=== PATIENT | male | born 1950 | race Caucasian/White ===

== ENCOUNTER 2017-12-24 10:29 | Outpatient (CLI) | payer OTHER | END 2017-12-24 12:29 | disposition home or self-care (01) | LOC: ECT 10:29 | DX: F33.3 Major depressive disorder, recurrent, severe with psychotic symptoms (principal); Z85.828 Personal history of other malignant neoplasm of skin; E78.5 Hyperlipidemia, unspecified; R73.03 Prediabetes; F41.9 Anxiety disorder, unspecified; Z87.891 Personal history of nicotine dependence; M75.31 Calcific tendinitis of right shoulder ==

== ENCOUNTER 2017-12-26 08:40 | Outpatient (RCR) | payer OTHER ==
[~2017-12-26] VITALS: Ht 180.3 cm; Wt 76.7 kg
[2017-12-28] MEDS ORDERED: Methohexital Sodium Syr 100mg/10ml IVP ONE (06:00)
[2017-12-28] MEDS ORDERED: Midazolam 2mg/2ml Inj ONE (06:00)
[2017-12-28] MEDS ORDERED: Succinylcholine 20mg/ml 10ml vial ONE (06:00)
[2017-12-28] MEDS ORDERED: NS 500ML ONE (06:00)
[2017-12-31] MEDS ORDERED: Succinylcholine 20mg/ml 10ml vial ONE (06:00)
[2017-12-31] MEDS ORDERED: Methohexital Sodium Syr 100mg/10ml IVP ONE (06:00)
[2017-12-31] MEDS ORDERED: Midazolam 2mg/2ml Inj ONE (06:00)
[2017-12-31] MEDS ORDERED: NS 500ML ONE (06:00)
[2018-01-02] MEDS ORDERED: Methohexital Sodium Syr 100mg/10ml IVP ONE (14:26)
[2018-01-02] MEDS ORDERED: Succinylcholine 20mg/ml 10ml vial ONE (14:26)
[2018-01-02] MEDS ORDERED: Midazolam 2mg/2ml Inj ONE (14:26)
== END 2018-01-02 | disposition home or self-care (01) ==
LOC: ECT 08:40
DX: F33.3 Major depressive disorder, recurrent, severe with psychotic symptoms (principal)
CPT/HCPCS: 90870; J0330; J2250; J7040

== ENCOUNTER 2018-01-04 08:40 | Outpatient (RCR) | payer OTHER ==
[~2018-01-04] VITALS: Ht 180.3 cm; Wt 77.0 kg
[2018-01-04] MEDS ORDERED: Succinylcholine 20mg/ml 10ml vial ONE (08:41)
[2018-01-04] MEDS ORDERED: NS 500ML ONE (08:41)
[2018-01-04] MEDS ORDERED: Methohexital Sodium Syr 100mg/10ml IVP ONE (08:41)
[2018-01-07] MEDS ORDERED: Methohexital Sodium Syr 100mg/10ml IVP ONE (06:00)
[2018-01-07] MEDS ORDERED: Succinylcholine 20mg/ml 10ml vial ONE (06:00)
[2018-01-07] MEDS ORDERED: NS 500ML ONE (06:00)
[2018-01-09] MEDS ORDERED: Succinylcholine 20mg/ml 10ml vial ONE (06:00)
[2018-01-09] MEDS ORDERED: Methohexital Sodium Syr 100mg/10ml IVP ONE (06:00)
[2018-01-09] MEDS ORDERED: NS 500ML ONE (06:00)
[2018-01-11] MEDS ORDERED: Methohexital Sodium Syr 100mg/10ml IVP ONE (06:00)
[2018-01-11] MEDS ORDERED: Succinylcholine 20mg/ml 10ml vial ONE (06:00)
[2018-01-11] MEDS ORDERED: NS 500ML ONE (06:00)
[2018-01-14] MEDS ORDERED: Methohexital Sodium Syr 100mg/10ml IVP ONE (06:00)
[2018-01-14] MEDS ORDERED: Succinylcholine 20mg/ml 10ml vial ONE (06:00)
[2018-01-14] MEDS ORDERED: NS 500ML ONE (06:00)
[2018-01-16] MEDS ORDERED: Succinylcholine 20mg/ml 10ml vial ONE (06:00)
[2018-01-16] MEDS ORDERED: Methohexital Sodium Syr 100mg/10ml IVP ONE (06:00)
[2018-01-16] MEDS ORDERED: NS 500ML ONE (06:00)
[2018-01-18] MEDS ORDERED: NS 500ML ONE (06:00)
[2018-01-18] MEDS ORDERED: Methohexital Sodium Syr 100mg/10ml IVP ONE (06:00)
[2018-01-18] MEDS ORDERED: Succinylcholine 20mg/ml 10ml vial ONE (06:00)
[2018-01-23] MEDS ORDERED: Succinylcholine 20mg/ml 10ml vial ONE (06:00)
[2018-01-23] MEDS ORDERED: NS 500ML ONE (06:00)
[2018-01-23] MEDS ORDERED: Methohexital Sodium Syr 100mg/10ml IVP ONE (06:00)
[2018-01-23 09:18] VITALS: BP 130/69
[2018-01-23 09:30] VITALS: BP 125/54
[2018-01-23] MEDS ORDERED: Sodium Chloride 500ML 500 ML IV ONE (09:30)
[2018-01-23 09:35] VITALS: BP 139/59
[2018-01-23 09:40] VITALS: BP 139/59
[2018-01-23 09:45] VITALS: BP 128/52
== END 2018-02-02 | disposition home or self-care (01) ==
LOC: ECT 08:40
DX: F33.3 Major depressive disorder, recurrent, severe with psychotic symptoms (principal)
CPT/HCPCS: 90870; J0330; J2405; J7040

== ENCOUNTER 2018-02-04 09:11 | Outpatient (RCR) | payer OTHER ==
[~2018-02-04] VITALS: Ht 180.3 cm; Wt 78.0 kg
[2018-02-04] MEDS ORDERED: NS 500ML ONE (09:12)
[2018-02-04] MEDS ORDERED: Methohexital Sodium Syr 100mg/10ml IVP ONE (09:12)
[2018-02-04] MEDS ORDERED: Succinylcholine 20mg/ml 10ml vial ONE (09:12)
[2018-02-04 10:21] VITALS: BP 139/74
[2018-02-04] MEDS ORDERED: Sodium Chloride 500ML 500 ML IV ONE (10:26)
[2018-02-04 10:40] VITALS: BP 146/63
[2018-02-04 10:45] VITALS: BP 146/63
[2018-02-04 10:50] VITALS: BP 156/62
[2018-02-04 10:55] VITALS: BP 144/66
[2018-02-25] MEDS ORDERED: Methohexital Sodium Syr 100mg/10ml IVP ONE (08:00)
[2018-02-25] MEDS ORDERED: Succinylcholine 20mg/ml 10ml vial ONE (08:00)
[2018-02-25] MEDS ORDERED: NS 500ML ONE (08:00)
[2018-02-25 10:08] VITALS: BP 136/81
[2018-02-25] MEDS ORDERED: Sodium Chloride 500ML 500 ML IV ONE (10:20)
[2018-02-25 10:25] VITALS: BP 155/58
[2018-02-25 10:30] VITALS: BP 147/64
[2018-02-25 10:35] VITALS: BP 108/72
[2018-02-25 10:40] VITALS: BP 128/54
== END 2018-03-04 | disposition home or self-care (01) ==
LOC: ECT 09:11
DX: F33.3 Major depressive disorder, recurrent, severe with psychotic symptoms (principal)
CPT/HCPCS: 90870; J0330; J7040

== ENCOUNTER 2018-03-25 05:20 | Outpatient (RCR) | payer OTHER ==
[~2018-03-25] VITALS: Ht 180.3 cm; Wt 77.0 kg
[2018-03-25] MEDS ORDERED: Methohexital Sodium Syr 100mg/10ml IVP ONE (05:21)
[2018-03-25] MEDS ORDERED: NS 500ML ONE (05:21)
[2018-03-25] MEDS ORDERED: Succinylcholine 20mg/ml 10ml vial ONE (05:21)
[2018-03-25 08:41] VITALS: BP 158/84
[2018-03-25] MEDS ORDERED: Sodium Chloride 500ML 500 ML IV ONE (08:55)
[2018-03-25 09:00] VITALS: BP 155/59
[2018-03-25 09:05] VITALS: BP 166/68
[2018-03-25 09:10] VITALS: BP 171/60
[2018-03-25 09:15] VITALS: BP 169/61
== END 2018-04-04 | disposition home or self-care (01) ==
LOC: ECT 05:20
DX: F33.3 Major depressive disorder, recurrent, severe with psychotic symptoms (principal)
CPT/HCPCS: 90870; J0330; J7040

== ENCOUNTER 2018-04-22 07:52 | Outpatient (RCR) | payer OTHER ==
[~2018-04-22] VITALS: Ht 33 cm; Wt 0.5 kg
[2018-04-22] MEDS ORDERED: Succinylcholine 20mg/ml 10ml vial ONE (07:53)
[2018-04-22] MEDS ORDERED: Methohexital Sodium Syr 100mg/10ml IVP ONE (07:53)
[2018-04-22] MEDS ORDERED: NS 500ML ONE (07:53)
[2018-04-22 08:47] VITALS: BP 141/77
[2018-04-22] MEDS ORDERED: Sodium Chloride 500ML 500 ML IV ONE (09:00)
[2018-04-22 09:10] VITALS: BP 151/60
[2018-04-22 09:15] VITALS: BP 155/76
[2018-04-22 09:20] VITALS: BP 161/65
[2018-04-22 09:25] VITALS: BP 162/66
== END 2018-05-04 | disposition home or self-care (01) ==
LOC: ECT 07:52
DX: F33.3 Major depressive disorder, recurrent, severe with psychotic symptoms (principal)
CPT/HCPCS: 90870; J0330; J7040

== ENCOUNTER 2018-05-06 06:37 | Outpatient (RCR) | payer OTHER ==
[~2018-05-06] VITALS: Ht 180.3 cm; Wt 77.0 kg
[2018-05-06] MEDS ORDERED: Methohexital Sodium Syr 100mg/10ml IVP ONE (06:38)
[2018-05-06] MEDS ORDERED: Succinylcholine 20mg/ml 10ml vial ONE (06:38)
[2018-05-06] MEDS ORDERED: NS 500ML ONE (06:38)
[2018-05-06 09:15] VITALS: BP 153/76
[2018-05-06] MEDS ORDERED: Sodium Chloride 500ML 500 ML IV ONE (09:33)
[2018-05-06 09:35] VITALS: BP 165/63
[2018-05-06 09:40] VITALS: BP 164/68
[2018-05-06 09:45] VITALS: BP 174/81
[2018-05-06 09:50] VITALS: BP 176/74
[2018-05-06 09:55] VITALS: BP 173/72
[2018-05-20] MEDS ORDERED: Succinylcholine 20mg/ml 10ml vial ONE (08:00)
[2018-05-20] MEDS ORDERED: NS 500ML ONE (08:00)
[2018-05-20] MEDS ORDERED: Methohexital Sodium Syr 100mg/10ml IVP ONE (08:00)
[2018-05-20] MEDS ORDERED: Sodium Chloride 500ML 500 ML IV ONE (10:11)
[2018-05-20 10:15] VITALS: BP 154/66
[2018-05-20 10:20] VITALS: BP 169/65
[2018-05-20 10:25] VITALS: BP 169/76
[2018-05-20 10:30] VITALS: BP 176/59
[2018-05-20 10:40] VITALS: BP 154/81
== END 2018-06-04 | disposition home or self-care (01) ==
LOC: ECT 06:37
DX: F33.3 Major depressive disorder, recurrent, severe with psychotic symptoms (principal)
CPT/HCPCS: 90870; J0330; J7040

== ENCOUNTER 2018-06-10 07:40 | Outpatient (RCR) | payer OTHER ==
[~2018-06-10] VITALS: Ht 30.5 cm; Wt 0.5 kg
[2018-06-10] MEDS ORDERED: Methohexital Sodium Syr 100mg/10ml IVP ONE (07:41)
[2018-06-10] MEDS ORDERED: Succinylcholine 20mg/ml 10ml vial ONE (07:41)
[2018-06-10] MEDS ORDERED: NS 500ML ONE (07:41)
[2018-06-10 09:50] VITALS: BP 160/78
[2018-06-10] MEDS ORDERED: Atropine Sulfate 0.4mg/ml inj IVP PRN (10:13)
[2018-06-10] MEDS ORDERED: Sodium Chloride 500ML 500 ML IV ONE (10:13)
[2018-06-10 10:15] VITALS: BP 163/82
[2018-06-10 10:20] VITALS: BP 163/67
[2018-06-10 10:25] VITALS: BP 169/56
[2018-06-10 10:30] VITALS: BP 160/59
== END 2018-07-05 | disposition home or self-care (01) ==
LOC: ECT 07:40
DX: F33.3 Major depressive disorder, recurrent, severe with psychotic symptoms (principal)
CPT/HCPCS: 90870; J0330; J7040

== ENCOUNTER 2018-07-10 07:07 | Outpatient (RCR) | payer MEDICARE, OTHER ==
[~2018-07-10] VITALS: Ht 30.5 cm; Wt 0.5 kg
[2018-07-10] MEDS ORDERED: Methohexital Sodium Syr 100mg/10ml IVP ONE (07:08)
[2018-07-10] MEDS ORDERED: Succinylcholine 20mg/ml 10ml vial ONE (07:08)
[2018-07-10] MEDS ORDERED: NS 500ML ONE (07:08)
[2018-07-10 09:56] VITALS: BP 150/85
[2018-07-10] MEDS ORDERED: Sodium Chloride 500ML 500 ML IV ONE (10:11)
[2018-07-10 10:15] VITALS: BP 157/73
[2018-07-10 10:20] VITALS: BP 163/70
[2018-07-10 10:25] VITALS: BP 165/85
[2018-07-10 10:30] VITALS: BP 162/66
== END 2018-08-04 | disposition home or self-care (01) ==
LOC: ECT 07:07
DX: F33.3 Major depressive disorder, recurrent, severe with psychotic symptoms (principal)
CPT/HCPCS: 90870; J0330; J7040

== ENCOUNTER 2018-08-07 08:00 | Outpatient (RCR) | payer OTHER ==
[~2018-08-07] VITALS: Ht 30.5 cm; Wt 0.5 kg
[2018-08-07] MEDS ORDERED: Succinylcholine 20mg/ml 10ml vial ONE (08:01)
[2018-08-07] MEDS ORDERED: Methohexital Sodium Syr 100mg/10ml IVP ONE (08:01)
[2018-08-07] MEDS ORDERED: NS 500ML ONE (08:01)
[2018-08-07 09:35] VITALS: BP 154/79
[2018-08-07] MEDS ORDERED: Sodium Chloride 500ML 500 ML IV ONE (09:51)
[2018-08-07 09:55] VITALS: BP 153/62
[2018-08-07 10:00] VITALS: BP 148/58
[2018-08-07 10:05] VITALS: BP 160/80
[2018-08-07 10:10] VITALS: BP 144/72
[2018-09-04 10:24] VITALS: BP 154/72
[2018-09-04] MEDS ORDERED: Sodium Chloride 500ML 500 ML IV ONE (10:46)
[2018-09-04] MEDS ORDERED: Atropine Sulfate 0.4mg/ml inj IVP PRN (10:46)
[2018-09-04 10:50] VITALS: BP 190/64
[2018-09-04 10:55] VITALS: BP 173/68
[2018-09-04 11:00] VITALS: BP 172/64
[2018-09-04 11:05] VITALS: BP 160/61
== END 2018-09-04 | disposition home or self-care (01) ==
LOC: ECT 08:00
DX: F33.3 Major depressive disorder, recurrent, severe with psychotic symptoms (principal)
CPT/HCPCS: 90870; J0330; J7040

== ENCOUNTER 2018-10-02 07:01 | Outpatient (RCR) | payer OTHER ==
[~2018-10-02] VITALS: Ht 30.5 cm; Wt 0.5 kg
[2018-10-02] MEDS ORDERED: Methohexital Sodium Syr 100mg/10ml IVP ONE (07:02)
[2018-10-02] MEDS ORDERED: NS 500ML ONE (07:02)
[2018-10-02] MEDS ORDERED: Succinylcholine 20mg/ml 10ml vial ONE (07:02)
[2018-10-02] MEDS ORDERED: Midazolam 2mg/2ml Inj ONE (07:02)
[2018-10-02 09:22] VITALS: BP 152/73
[2018-10-02] MEDS ORDERED: Sodium Chloride 500ML 500 ML IV ONE (09:35)
[2018-10-02 09:40] VITALS: BP 170/68
[2018-10-02 09:45] VITALS: BP 156/70
[2018-10-02 09:50] VITALS: BP 165/66
[2018-10-02 09:55] VITALS: BP 172/75
== END 2018-10-04 | disposition home or self-care (01) ==
LOC: ECT 07:01
DX: F33.3 Major depressive disorder, recurrent, severe with psychotic symptoms (principal)
CPT/HCPCS: 90870; J0330; J2250; J7040

== ENCOUNTER 2018-10-30 05:11 | Outpatient (RCR) | payer MEDICARE, OTHER ==
[~2018-10-30] VITALS: Ht 30.5 cm; Wt 0.5 kg
[2018-10-30] MEDS ORDERED: NS 500ML ONE ×2 (05:12)
[2018-10-30] MEDS ORDERED: Methohexital Sodium Syr 100mg/10ml IVP ONE ×2 (05:12)
[2018-10-30] MEDS ORDERED: Succinylcholine 20mg/ml 10ml vial ONE ×2 (05:12)
[2018-10-30] MEDS ORDERED: Midazolam 2mg/2ml Inj ONE (05:12)
[2018-10-30 09:23] VITALS: BP 158/80
[2018-10-30] MEDS ORDERED: Sodium Chloride 500ML 500 ML IV ONE (09:39)
[2018-10-30 09:40] VITALS: BP 162/72
[2018-10-30 09:45] VITALS: BP 162/72
[2018-10-30 09:50] VITALS: BP 183/76
[2018-10-30 09:55] VITALS: BP 165/71
== END 2018-11-04 | disposition home or self-care (01) ==
LOC: ECT 05:11
DX: F33.3 Major depressive disorder, recurrent, severe with psychotic symptoms (principal); I25.10 Atherosclerotic heart disease of native coronary artery without angina pectoris; E78.5 Hyperlipidemia, unspecified; C44.90 Unspecified malignant neoplasm of skin, unspecified
CPT/HCPCS: 90870; J0330; J2250; J7040

== ENCOUNTER 2018-11-27 05:33 | Outpatient (RCR) | payer MEDICARE ==
[~2018-11-27] VITALS: Ht 30.5 cm; Wt 0.5 kg
[2018-11-27] MEDS ORDERED: Methohexital Sodium Syr 100mg/10ml IVP ONE (05:34)
[2018-11-27] MEDS ORDERED: NS 500ML ONE (05:34)
[2018-11-27] MEDS ORDERED: Succinylcholine 20mg/ml 10ml vial ONE (05:34)
[2018-11-27 10:09] VITALS: BP 141/78
[2018-11-27 10:30] VITALS: BP 162/62
[2018-11-27 10:35] VITALS: BP 156/70
[2018-11-27 10:40] VITALS: BP 161/68
[2018-11-27 10:45] VITALS: BP 142/108
== END 2018-12-05 | disposition home or self-care (01) ==
LOC: ECT 05:33
DX: F33.3 Major depressive disorder, recurrent, severe with psychotic symptoms (principal); H93.12 Tinnitus, left ear; M75.31 Calcific tendinitis of right shoulder; Z85.828 Personal history of other malignant neoplasm of skin; E78.5 Hyperlipidemia, unspecified; R73.03 Prediabetes
CPT/HCPCS: 90870; J0330; J7040

== ENCOUNTER 2019-01-01 04:45 | Outpatient (RCR) | payer MEDICARE ==
[~2019-01-01] VITALS: Ht 30.5 cm; Wt 0.5 kg
[2019-01-01] MEDS ORDERED: Esmolol 100mg/10ml Inj ONE (06:00)
[2019-01-01] MEDS ORDERED: NS 500ML ONE (06:00)
[2019-01-01] MEDS ORDERED: Succinylcholine 20mg/ml 10ml vial ONE (06:00)
[2019-01-01 09:54] VITALS: BP 122/68
[2019-01-01 10:15] VITALS: BP 150/75
[2019-01-01 10:20] VITALS: BP 164/59
[2019-01-01 10:25] VITALS: BP 159/71
[2019-01-01 10:30] VITALS: BP 155/71
[2019-01-02] MEDS ORDERED: Succinylcholine 20mg/ml 10ml vial ONE ×2 (13:29→22:50)
[2019-01-02] MEDS ORDERED: Methohexital Sodium Syr 100mg/10ml IVP ONE (22:50)
[2019-01-02] MEDS ORDERED: NS 500ML ONE (22:50)
[2019-01-05] MEDS ORDERED: Methohexital Sodium Syr 100mg/10ml IVP ONE (06:00)
== END 2019-01-02 | disposition home or self-care (01) ==
LOC: ECT 04:45
DX: F33.3 Major depressive disorder, recurrent, severe with psychotic symptoms (principal)
CPT/HCPCS: 90870; J0330; J7040

== ENCOUNTER 2019-02-05 06:40 | Outpatient (RCR) | payer MEDICARE ==
[~2019-02-05] VITALS: Ht 30.5 cm; Wt 0.5 kg
[2019-02-05] MEDS ORDERED: NS 500ML ONE (06:41)
[2019-02-05] MEDS ORDERED: Methohexital Sodium Syr 100mg/10ml IVP ONE (06:41)
[2019-02-05] MEDS ORDERED: Succinylcholine 20mg/ml 10ml vial ONE (06:41)
[2019-02-05 10:03] VITALS: BP 147/71
[2019-02-05 10:20] VITALS: BP 167/74
[2019-02-05 10:25] VITALS: BP 173/64
[2019-02-05 10:30] VITALS: BP 143/65
[2019-02-05 10:35] VITALS: BP 166/52
== END 2019-03-04 | disposition home or self-care (01) ==
LOC: ECT 06:40
DX: F33.3 Major depressive disorder, recurrent, severe with psychotic symptoms (principal)
CPT/HCPCS: 90870; J0330; J7040

== ENCOUNTER 2019-03-19 07:10 | Outpatient (RCR) | payer MEDICARE ==
[~2019-03-19] VITALS: Ht 30.5 cm; Wt 0.5 kg
[2019-03-19] MEDS ORDERED: Succinylcholine 20mg/ml 10ml vial ONE (07:11)
[2019-03-19] MEDS ORDERED: Methohexital Sodium Syr 100mg/10ml IVP ONE (07:11)
[2019-03-19] MEDS ORDERED: NS 500ML ONE (07:11)
[2019-03-19 09:42] VITALS: BP 152/69
[2019-03-19 09:55] VITALS: BP 157/64
[2019-03-19 10:00] VITALS: BP 162/62
[2019-03-19 10:05] VITALS: BP 152/64
[2019-03-19 10:10] VITALS: BP 169/66
== END 2019-04-04 | disposition home or self-care (01) ==
LOC: ECT 07:10
DX: F33.3 Major depressive disorder, recurrent, severe with psychotic symptoms (principal)
CPT/HCPCS: 90870; J0330; J7040

== ENCOUNTER 2019-04-30 06:15 | Outpatient (RCR) | payer MEDICARE ==
[~2019-04-30] VITALS: Ht 30.5 cm; Wt 0.5 kg
[2019-04-30] MEDS ORDERED: Methohexital Sodium Syr 100mg/10ml IVP ONE (06:16)
[2019-04-30] MEDS ORDERED: Succinylcholine 20mg/ml 10ml vial ONE (06:16)
[2019-04-30] MEDS ORDERED: NS 500ML ONE (06:16)
[2019-04-30 09:42] VITALS: BP 146/82
[2019-04-30 10:05] VITALS: BP 151/74
[2019-04-30 10:10] VITALS: BP 170/68
[2019-04-30 10:15] VITALS: BP 171/61
[2019-04-30 10:20] VITALS: BP 165/57
== END 2019-05-04 | disposition home or self-care (01) ==
LOC: ECT 06:15
DX: F33.3 Major depressive disorder, recurrent, severe with psychotic symptoms (principal)
CPT/HCPCS: 90870; J0330; J7040

== ENCOUNTER 2019-06-11 06:35 | Outpatient (RCR) | payer MEDICARE ==
[~2019-06-11] VITALS: Ht 180.3 cm; Wt 77.0 kg
[~2019-06-11 06:35] MED LIST: Methohexital Sodium Syr 100mg/10ml IVP ONE; NS 500ML ONE; Succinylcholine 20mg/ml 10ml vial ONE
[2019-06-11 09:47] VITALS: BP 148/71
[2019-06-11 10:05] VITALS: BP 160/72
[2019-06-11 10:10] VITALS: BP 170/68
[2019-06-11 10:15] VITALS: BP 179/63
[2019-06-11 10:20] VITALS: BP 156/63
== END 2019-07-05 | disposition home or self-care (01) ==
LOC: ECT 06:35
DX: F33.3 Major depressive disorder, recurrent, severe with psychotic symptoms (principal)
CPT/HCPCS: 90870; J0330; J7040

== ENCOUNTER 2019-07-30 04:45 | Outpatient (RCR) | payer MEDICARE ==
[~2019-07-30] VITALS: Ht 180.3 cm; Wt 77.0 kg
[2019-07-30] MEDS ORDERED: Methohexital Sodium Syr 100mg/10ml IVP ONE (06:00)
[2019-07-30] MEDS ORDERED: NS 500ML ONE (06:00)
[2019-07-30] MEDS ORDERED: Succinylcholine 20mg/ml 10ml vial ONE (06:00)
[2019-07-30 11:10] VITALS: BP 161/75
[2019-07-30 11:31] VITALS: BP 166/70
[2019-07-30 11:36] VITALS: BP 158/75
[2019-07-30 11:41] VITALS: BP 181/66
[2019-07-30 11:46] VITALS: BP 160/74
== END 2019-08-04 | disposition home or self-care (01) ==
LOC: ECT 04:45
DX: F33.3 Major depressive disorder, recurrent, severe with psychotic symptoms (principal)
CPT/HCPCS: 90870; J0330; J7040

== ENCOUNTER 2019-09-10 05:29 | Outpatient (RCR) | payer MEDICARE ==
[~2019-09-10] VITALS: Ht 180.3 cm; Wt 77.0 kg
[2019-09-10] MEDS ORDERED: Succinylcholine 20mg/ml 10ml vial ONE (05:30)
[2019-09-10] MEDS ORDERED: Methohexital Sodium Syr 100mg/10ml IVP ONE (05:30)
[2019-09-10] MEDS ORDERED: NS 500ML ONE (05:30)
[2019-09-10 09:25] VITALS: BP 136/80
[2019-09-10 09:40] VITALS: BP 149/69
[2019-09-10 09:45] VITALS: BP 162/57
[2019-09-10 09:50] VITALS: BP 163/62
[2019-09-10 09:55] VITALS: BP 166/62
== END 2019-10-04 | disposition home or self-care (01) ==
LOC: ECT 05:29
DX: F33.3 Major depressive disorder, recurrent, severe with psychotic symptoms (principal)
CPT/HCPCS: 90870; J0330; J7040

== ENCOUNTER 2019-10-27 07:01 | Outpatient (RCR) | payer MEDICARE ==
[~2019-10-27] VITALS: Ht 30.5 cm; Wt 0.5 kg
[2019-10-27] MEDS ORDERED: Methohexital Sodium 500mg Vial IVP ONE (07:02)
[2019-10-27] MEDS ORDERED: NS 500ML ONE (07:02)
[2019-10-27] MEDS ORDERED: Succinylcholine 20mg/ml 10ml vial ONE (07:02)
[2019-10-27 10:15] VITALS: BP 142/77
[2019-10-27 10:30] VITALS: BP 161/71
[2019-10-27 10:35] VITALS: BP 167/60
[2019-10-27 10:40] VITALS: BP 169/73
[2019-10-27 10:45] VITALS: BP 165/63
== END 2019-11-04 | disposition home or self-care (01) ==
LOC: ECT 07:01
DX: F33.3 Major depressive disorder, recurrent, severe with psychotic symptoms (principal)
CPT/HCPCS: 90870; J3490

== ENCOUNTER 2019-12-22 05:36 | Outpatient (RCR) | payer MEDICARE ==
[~2019-12-22] VITALS: Ht 30.5 cm; Wt 0.5 kg
[2019-12-22] MEDS ORDERED: Succinylcholine 20mg/ml 10ml vial ONE (09:00)
[2019-12-22] MEDS ORDERED: Methohexital Sodium Syr 100mg/10ml IVP ONE (09:00)
[2019-12-22] MEDS ORDERED: NS 500ML ONE (09:00)
[2019-12-22 09:07] VITALS: BP 147/87
[2019-12-22 09:20] VITALS: BP 161/64
[2019-12-22 09:25] VITALS: BP 164/68
[2019-12-22 09:30] VITALS: BP 163/51
[2019-12-22 09:35] VITALS: BP 159/75
== END 2020-01-03 | disposition home or self-care (01) ==
LOC: ECT 05:36
DX: F33.3 Major depressive disorder, recurrent, severe with psychotic symptoms (principal); E78.5 Hyperlipidemia, unspecified; R73.03 Prediabetes; Z85.828 Personal history of other malignant neoplasm of skin; M75.31 Calcific tendinitis of right shoulder; H93.12 Tinnitus, left ear
CPT/HCPCS: 90870; J0330; J7040

== ENCOUNTER 2020-02-18 06:11 | Outpatient (RCR) | payer MEDICARE | END 2020-03-04 | disposition home or self-care (01) | LOC: ECT 06:11 | DX: Z53.9 Procedure and treatment not carried out, unspecified reason (principal) ==